=== PATIENT | female | born 1960 | race Caucasian/White ===

== ENCOUNTER 2020-08-01 23:58 | Observation (INO) | payer BC, SELFPAY ==
[2020-08-01 23:59] VITALS: BP 142/69; PULSE 57; RESP 21; TEMP 36.5; O2SAT 100; BMI 25.4
[2020-08-02] VITALS (22 sets, daily range): BP systolic 107–162; BP diastolic 49–88; PULSE 50–101; RESP 14–18; TEMP 36.4–37.5; O2SAT 92–99; BMI 27.5
[2020-08-02 00:17] LABS: Microscopic, Urine URINE MICROSCOPIC (MICROSCOPIC)
--- NOTE | 2020-08-02 00:18 | CT_ITS ---
PROCEDURE INFORMATION: Exam: CT Abdomen And Pelvis Without Contrast Exam date and time: 08/02/2020 12:18 AM Age: 60 years old Clinical indication: Abdominal pain; Right; Prior surgery; Surgery date: 6+ months; Surgery type: Gb hysterectomy; Patient HX: RT flank pain, vomiting, hematuria; Additional info: Kidney stone protocol TECHNIQUE: Imaging protocol: Computed tomography of the abdomen and pelvis without contrast. Total images: 297 Radiation optimization: All CT scans at this facility use at least one of these dose optimization techniques: automated exposure control; mA and/or kV adjustment per patient size (includes targeted exams where dose is matched to clinical indication); or iterative reconstruction. COMPARISON: No relevant prior studies available. FINDINGS: Liver: Normal. No mass. Gallbladder and bile ducts: Cholecystectomy noted with postoperative biliary ductal fullness. Pancreas: Normal. No ductal dilation. Spleen: Normal. No splenomegaly. Adrenal glands: Normal. No mass. Kidneys and ureters: Multiple nonobstructive left sided kidney stones measure as large as 3 mm. Irregular shaped 4 x 4 x 8 mm right-sided mid ureteral stone. Mild hydronephrosis. The right renal sinus edema from obstruction. Stomach and bowel: Colonic diverticulosis is present without diverticulitis. Appendix: Normal appendix. Intraperitoneal space: Unremarkable. No free air. No significant fluid collection. Vasculature: Unremarkable. No abdominal aortic aneurysm. Lymph nodes: Unremarkable. No enlarged lymph nodes. Urinary bladder: Unremarkable as visualized. Reproductive: Prior hysterectomy noted. Pelvic Floor: Laxity of the pelvic floor is noted. Bones/joints: Facet joint degenerative changes are present. Mild disc bulge at L2/L3. Soft tissues: Breast implants are present. There is a fat containing right inguinal hernia. IMPRESSION: 1. Irregular shaped 4 x 4 x 8 mm right-sided mid ureteral stone. Mild hydronephrosis. 2. Normal appendix.
[2020-08-02 00:28] LABS: Appearance,Urine CLEAR (Clear); Bacteria,Urine 2+ /lpf; Bilirubin,Urine Negative (Negative); Blood, Urine 3+ (Negative); Color,Urine YELLOW (Yellow); Glucose,Urine (UA) Negative (Negative); Ketones,Urine Negative (Negative); Leukocyte Esterase,Urine 1+ (Negative); Mucus,Urine 1+ /lpf; Nitrate,Urine Negative (Negative); Protein,Urine Negative (Negative); Specific Gravity, Urine >= 1.030 (1.005-1.030); Urobilinogen,Urine 0.2 EU/dl (0.2)
[2020-08-02 00:34] LABS: Basophils # 0.1 K/mm3 (0-0.2); Basophils % 0.7 % (0.1-2.0); Eosinophils # 0.1 K/mm3 (0.0-0.4); Eosinophils % 0.7 % (0.1-12.0); Hematocrit 40.6 % (37.0-47.0); Hemoglobin 13.8 g/dL (12.2-16.2); Lymphocytes # 2.3 K/mm3 (0.7-4.5); Mean Corpuscular HGB Conc 33.9 g/dL (31.8-35.4); Mean Corpuscular Hemoglobin 31.8 pg (27.0-31.2); Mean Corpuscular Volume 93.9 fl (81-99); Mean Platelet Volume 8.3 fl (7.4-10.4); Monocytes # 0.5 K/mm3 (0.1-1.0); Monocytes % 4.2 % (1.7-9.3); Neutrophils # 8.1 K/mm3 (1.8-7.8); Neutrophils % 73.5 % (37.0-80.0); Platelet Count 229 K/mm3 (142-424); Red Blood Count 4.33 M/mm3 (4.20-5.40); Red Cell Distribution Width 13.7 % (11.5-17.5)
--- NOTE | 2020-08-02 00:37 | HMH.EDABDPAI ---
ED Disposition Clinical Impression: Calculus of kidney Disposition: Admitted as Observation Condition on Discharge: Good Instructions: DI for Acute Abdominal Pain - Critical Care Critical Care Time: No Attestation: On , the high probability of a clinically significant, sudden or life threatening deterioration of the following system(s) required my full and direct attention, intervention and personal management. The time I documented below is in addition to time spent performing reported procedures but includes the following listed in this critical care notation. Medical Decision Making - Medical Records Medical records reviewed: Yes: I reviewed the patient's medical records. - Prakash Inquiry Pt receiving controlled substance: No Vital Signs: 08/01/20 23:59 Temperature 97.7 F Temperature Source Oral Pulse Rate [Left Radial] 57 L Respiratory Rate 21 Blood Pressure [Right Arm] 142/69 H Blood Pressure Mean [Right Arm] 93 Blood Pressure Source [Right Arm] Automatic Cuff Blood Pressure Position [Right Arm] Sitting 02 Sat by Pulse Oximetry 100 Oxygen Delivery Method Room Air - Lab Data Lab Results 08/02/20 00:08: Urine Color Yellow, Urine Appearance Clear, Urine pH 6.0, Ur Specific [place] >= 1.030, Urine Protein Negative, Urine Glucose (UA) Negative, Urine Ketones Negative, Urine Blood 3+, Urine Nitrate Negative, Urine Bilirubin Negative, Urine Urobilinogen 0.2, Ur Leukocyte Esterase 1+ A, Urine RBC 10-20, Urine WBC 5-10, Ur Squamous Epith Cells 5-10, Urine Bacteria 2+, Urine Mucus 1+ 08/02/20 00:26: WBC 11.0 H, RBC 4.33, Hgb 13.8, Hct 40.6, MCV 93.9, MCH 31.8 H, MCHC 33.9, RDW 13.7, Plt Count 229, MPV 8.3, Neut % (Auto) 73.5, Lymph % (Auto) 21.0, [place] % (Auto) 4.2, Eos % (Auto) 0.7, Baso % (Auto) 0.7, Neut # (Auto) 8.1 H, Lymph # (Auto) 2.3, [place] # (Auto) 0.5, Eos # (Auto) 0.1, Baso # (Auto) 0.1 08/02/20 00:26: Sodium 138, Potassium 3.6, Chloride 100, Carbon Dioxide 29, Anion Gap 12.6, BUN 20 H, Creatinine 0.90, Estimated Creat Clear 63, Estimated GFR 64, Est GFR ( Amer) 77, Glucose 169 H, Calcium 9.2, Lipase 121 Result diagrams: 08/02/20 00:26 08/02/20 00:26 Orders (Tests/Meds): ED MEDICATIONS Generic Name Dose Route Start Last Admin Trade Name Freq PRN Reason Stop Dose Admin Sodium Chloride 1,000 mls @ 999 mls/hr 08/02/20 00:15 08/02/20 00:15 Sod Chlor 0.9% 1000ml Bag IV 08/02/20 01:15 999 mls/hr .Q1H1M LASHAWN Administration Discontinued Medications Generic Name Dose Route Start Last Admin Trade Name Freq PRN Reason Stop Dose Admin Ketorolac Tromethamine 30 mg 08/02/20 02:09 08/02/20 02:14 Ketorolac 30mg/Ml Vial IV 08/02/20 02:10 30 mg ONCE ONE Administration Morphine Sulfate 4 mg 08/02/20 00:11 08/02/20 00:36 Morphine 4mg/Ml Syringe IV 08/02/20 00:12 4 mg ONCE ONE Administration Morphine Sulfate 4 mg 08/02/20 02:17 Morphine 4mg/Ml Syringe IV 08/02/20 02:18 ONCE ONE Promethazine HCl 25 mg 08/02/20 00:11 08/02/20 00:36 Promethazine Hcl 25mg/Ml 1ml Vial IV 08/02/20 00:12 25 mg ONCE ONE Administration Sodium Chloride 25 ml 08/02/20 00:12 Sodium Chloride 0.9% 25ml Bag IV 08/02/20 00:13 ONCE ONE ORDERS Category Date Time Status Rapid PCR Covid and Flu A/B Stat Lab 08/02/20 02:19 Ordered Urine Culture Stat Micro 08/02/20 00:08 Received Medical Decision Narrative: 60-year-old female presents with sudden onset right-sided flank pain. History is most consistent with renal colic. Afebrile and less concern for acute pyelonephritis. No history or exam findings concerning for gallbladder etiology perforation obstruction ischemia diverticulitis or appendicitis. Given morphine and Phenergan and IV fluids for symptomatic treatment. CT stone obtained. CT stone shows 4x8 irregular stone with mild hydronephrosis. Creatinine normal no evidence of urinary tract infection. On reexamination her pain has returned given Tor
[2020-08-02 00:41] LABS: Anion Gap 12.6 mEq/L (5-15); Blood Urea Nitrogen 20 mg/dl (7-17); Calcium 9.2 mg/dl (8.4-10.2); Carbon Dioxide 29 mmol/L (22.0-30.0); Chloride 100 mmol/L (98-107); Creatinine Clearance Estimated 63 mL/min (50-200); Estimated Glomerular Filt Rate 64 ml/min (>60); GFR (African American) 77 ML/MIN (>60); Glucose 169 mg/dl (74-100); Lipase 121 U/L (23-300); Potassium 3.6 mmoL/L (3.5-5.1); Sodium 138 mmol/L (136-145)
--- NOTE | 2020-08-02 02:16 | PC.NURSE ---
Dr Reilly speaking with Dr eCrda for admission
[2020-08-02 02:28] LABS: Coronavirus 19, PCR Not Detected (NotDetected); Influenza A, PCR Not Detected (NotDetected); Influenza B, PCR Not Detected (NotDetected)
--- NOTE | 2020-08-02 03:48 | PC.NURSE ---
PT ARRIVED TO FLOOR VIA W/C FROM ED W/STAFF AT [id number]
--- NOTE | 2020-08-02 07:19 | HMH.PHAVTE ---
[facility] Pharmacy VTE Monitoring - Patient Demographics Admission date: 08/02/20 Report Date: 08/02/20 Time: 07:20 Allergies/Adverse Reactions: Patient Allergies Penicillins Allergy (Verified 08/02/20 00:35) Height: 1.63 m Weight: 72.802 kg Patient Problems: Current Active Problems Calculus of kidney (Acute) - VTE Risk Labs: VTE Related Lab Results Hgb 13.8 g/dL (12.2-16.2) 08/02/20 00:26 Hct 40.6 % (37.0-47.0) 08/02/20 00:26 Plt Count 229 K/mm3 (142-424) 08/02/20 00:26 BUN 20 mg/dl (7-17) H 08/02/20 00:26 Creatinine 0.90 mg/dl (0.52-1.04) 08/02/20 00:26 Estimated Creat Clear 63 mL/min (50-200) 08/02/20 00:26 Was VTE Risk Assessment Performed: Yes VTE Score: 1 VTE Risk Level: Very Low Risk - Prophylaxis VTE Prophylaxis Ordered?: Yes Types of VTE Prophylaxis: TEDS Knee High Location of Applied Device: Bilateral Lower Extremeties
--- NOTE | 2020-08-02 07:49 | HMH.PHAINT ---
MEDICATION RECONCILIATION COMPLETED ON PATIENT USING EXTERNAL FILL HISTORY FROM PHARMACY. -JOCELYN MARTINEZ, JUANJOD
--- NOTE | 2020-08-02 08:17 | PC.NURSE ---
Spoke w/ Dr. Riccardo Lama's office aware of consult.
[2020-08-02 08:40] LABS: Basophils % 0.4 % (0.1-2.0); Eosinophils # 0.1 K/mm3 (0.0-0.4); Eosinophils % 0.6 % (0.1-12.0); Hematocrit 39.2 % (37.0-47.0); Lymphocytes # 0.7 K/mm3 (0.7-4.5); Lymphocytes % 6.9 % (10-50); Mean Corpuscular HGB Conc 33.2 g/dL (31.8-35.4); Mean Corpuscular Hemoglobin 31.7 pg (27.0-31.2); Mean Corpuscular Volume 95.5 fl (81-99); Mean Platelet Volume 8.6 fl (7.4-10.4); Monocytes # 0.1 K/mm3 (0.1-1.0); Neutrophils # 8.7 K/mm3 (1.8-7.8); Neutrophils % 91.2 % (37.0-80.0); Platelet Count 168 K/mm3 (142-424); Red Cell Distribution Width 13.6 % (11.5-17.5); White Blood Count 9.5 K/mm3 (4.8-10.8)
[2020-08-02 08:44] LABS: MANUAL DIFFERENTIAL MANUAL DIFFERENTIAL (MANUAL DIFF)
[2020-08-02 08:52] LABS: Lymphocytes % 13 % (10-50); Monocytes % 4 % (2-9); Neutrophils % 80 % (42-76); Platelet Estimate Normal; RBC Morphology Normal; Total Cells Counted 100
--- NOTE | 2020-08-02 09:06 | HMH.HP ---
*Admission Date: 08/02/20 <Shani Goodwin 08/02/20 09:08> *Chief complaint: right flank and abdominal pain <Shani Goodwin 08/02/20 11:02> *History of present illness: Ms. 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 She states last night around 8:00 she began having severe right flank and right-sided abdominal pain. She then began vomiting. She felt at one point like she was going to pass out and had her friend bring her to the emergency room. She was evaluated in the ER and found to have a 4 x 4 x 8 mm right-sided ureteral stone. There was mild hydronephrosis. With the irregular shape of the stone, she was admitted for pain control, IV fluids, and a urology consult. <Shani Goodwin 08/02/20 11:02> [facility] History I have reviewed the patient's past medical history: Yes <Shani Goodwin 08/02/20 11:02> Medical History: Reports:: Arrhythmia, Diabetes Mellitus Type 2, Hyperlipidemia, Hypertension <Shani Goodwin 08/02/20 09:08> *Have you ever received a pneumonia vaccine?: No <Shani Goodwin 08/02/20 09:08> *Have you received a flu vaccine this season?: No <Shani Goodwin 08/02/20 09:08> Laterality Cases: Bilateral: Carpal Tunnel Release <Shani Goodwin 08/02/20 11:02> Other Surgeries: Yes: Cardiac Catheterization, Hysterectomy-Total <Shani Goodwin 08/02/20 09:08> - *Social History Smoking Status: Never smoker <Shani Goodwin 08/02/20 11:02> Alcohol Intake: current <Shani Goodwin 08/02/20 09:08> Alcohol Intake Frequency:: a few times a week <Shani Goodwin 08/02/20 09:08> *Occupational Status:: employed <Shani Goodwin 08/02/20 09:08> *Travel in the last 8 weeks: Inside the [place] <Shani Goodwin 08/02/20 09:08> Family Hx:: No significant family history <Shani Goodwin 08/02/20 09:08> Review of Systems - Constitutional Denies chills, Denies fever(s), Denies weakness <Shani Goodwin 08/02/20 11:02> - Eyes Denies blurry vision, Denies double vision <Shani Goodwin 08/02/20 11:02> - ENT Reports nasal congestion, Denies sore throat <Shani Goodwin 08/02/20 11:02> - *Cardiovascular Denies chest pain, Denies shortness of breath <Shani Goodwin 08/02/20 11:02> - *Respiratory Denies cough, Denies shortness of breath <Shani Goodwin 08/02/20 11:02> - *Gastrointestinal Reports abdominal pain (Right-sided), Reports nausea, Reports vomiting, Denies loose stools <Shani Goodwin 08/02/20 11:02> - *Genitourinary Denies difficulty urinating, Denies painful urination <Shani Goodwin 08/02/20 11:02> - *Musculoskeletal Reports back pain (Right flank), Denies joint pain <Shani Goodwin 08/02/20 11:02> - *Neurologic Reports dizziness, Denies dizziness, Denies headache(s), Denies numbness, Denies weakness <Shani Goodwin 08/02/20 11:02> Meds Home Medications Medication Instructions Recorded Confirmed Type Lisinopril/Hydrochlorothiazide 1 tab PO DAILY 08/02/20 08/02/20 History [Lisinopril-Hctz 20-25 mg Tab*] Metformin HCl 500 mg PO BIDWM 08/02/20 08/02/20 History <Macario Cerda - 08/02/20 11:49> Allergies Allergy/AdvReac Type Severity Reaction Status Date / Time Penicillins Allergy Verified 08/02/20 00:35 <Macario Cerda - 08/02/20 11:49> Exam Vital signs and Labs for Last 24 Hours: Temp Pulse Resp BP Pulse Ox 99.5 F 75 17 147/63 H 95 08/02/20 07:56 08/02/20 07:56 08/02/20 07:56 08/02/20 07:56 08/02/20 07:56 Laboratory Results - last 24 hr 08/02/20 00:08: Urine Color Yellow, Urine Appearance Clear, Urine pH 6.0, Ur Specific [place] >= 1.030, Urine Protein Negative, Urine Glucose (UA) Negative, Urine Ketones Negative, Urine Blood 3+, Urine Nitrate Negative, Urine Bilirubin Negative, Urine Urobilinogen 0.2, Ur Leukocyte Esterase 1+ A, Urine RBC 10-20, Urine WBC 5-10, Ur Squamous Epith Cells 5-10,
[2020-08-02 09:39] LABS: Chloride 104 mmol/L (98-107); Potassium 4.3 mmoL/L (3.5-5.1); Sodium 139 mmol/L (136-145)
[2020-08-02 09:41] LABS: Blood Urea Nitrogen 19 mg/dl (7-17); Creatinine Clearance Estimated 68 mL/min (50-200); Estimated Glomerular Filt Rate 64 ml/min (>60); GFR (African American) 77 ML/MIN (>60)
[2020-08-02 09:42] LABS: Anion Gap 14.3 mEq/L (5-15); Calcium 8.7 mg/dl (8.4-10.2); Carbon Dioxide 25 mmol/L (22.0-30.0); Chol/HDL Ratio 3.3 (1-3.5); Cholesterol 219 mg/dl (140-200); Glucose 103 mg/dl (74-100); HDL Cholesterol 66 mg/dl (40-60); Magnesium 1.4 mg/dl (1.6-2.3); Phosphorous 4.6 mg/dl (2.5-4.5); Triglycerides 70 mg/dl (30-150); VLDL Cholesterol 14 mg/dL (0-40)
[2020-08-02 09:53] LABS: Direct LDL Cholesterol 144.86 mg/dL (100-129)
--- NOTE | 2020-08-02 10:03 | HMH.CONS ---
*Admission Date: 08/02/20 *Reason for consult:: Right ureteral stone *History of present illness: Patient is a 60-year-old white female with the acute onset of right flank pain yesterday. Pain was associated with nausea and vomiting. She came into the emergency room last evening and a CT scan showed a 4 x 8 mm stone in the right mid ureter. Her white count is 11.0 and her creatinine is 0.9. She was admitted for pain control and she states some mild discomfort this morning but otherwise had a pretty good evening and was able to sleep. She denies a previous history of kidney stones. She is visiting [place] and lives in [facility]. [facility] History Medical History: Reports:: Arrhythmia, Diabetes Mellitus Type 2, Hyperlipidemia, Hypertension *Have you ever received a pneumonia vaccine?: No *Have you received a flu vaccine this season?: No Other Surgeries: Yes: Cardiac Catheterization, Hysterectomy-Total - *Social History Last grade of school completed: High school graduate Smoking Status: Former smoker Alcohol Intake: current Alcohol Intake Frequency:: a few times a week *Occupational Status:: employed *Travel in the last 8 weeks: Inside the [place] Family Hx:: No significant family history Review of Systems - Review of Systems Review of systems:: pertinent systems reviewed and negative unless documented below - Constitutional Denies anorexia - ENT Denies poor balance - *Cardiovascular Denies chest pain - *Respiratory Denies shortness of breath with activity - *Gastrointestinal Reports vomiting - *Genitourinary Denies blood in urine - *Musculoskeletal Reports back pain - Integumentary/Breasts Denies hair loss - *Neurologic Denies dizziness, Denies headache(s), Denies numbness, Denies weakness Meds Home Medications Medication Instructions Recorded Confirmed Type Lisinopril/Hydrochlorothiazide 1 tab PO DAILY 08/02/20 08/02/20 History [Lisinopril-Hctz 20-25 mg Tab*] Metformin HCl 500 mg PO BIDWM 08/02/20 08/02/20 History Allergies Allergy/AdvReac Type Severity Reaction Status Date / Time Penicillins Allergy Verified 08/02/20 00:35 Exam Vital signs and Labs for Last 24 Hours: Temp Pulse Resp BP Pulse Ox 99.5 F 75 17 147/63 H 95 08/02/20 07:56 08/02/20 07:56 08/02/20 07:56 08/02/20 07:56 08/02/20 07:56 Laboratory Results - last 24 hr 08/02/20 00:08: Urine Color Yellow, Urine Appearance Clear, Urine pH 6.0, Ur Specific [place] >= 1.030, Urine Protein Negative, Urine Glucose (UA) Negative, Urine Ketones Negative, Urine Blood 3+, Urine Nitrate Negative, Urine Bilirubin Negative, Urine Urobilinogen 0.2, Ur Leukocyte Esterase 1+ A, Urine RBC 10-20, Urine WBC 5-10, Ur Squamous Epith Cells 5-10, Urine Bacteria 2+, Urine Mucus 1+ 08/02/20 00:26: WBC 11.0 H, RBC 4.33, Hgb 13.8, Hct 40.6, MCV 93.9, MCH 31.8 H, MCHC 33.9, RDW 13.7, Plt Count 229, MPV 8.3, Neut % (Auto) 73.5, Lymph % (Auto) 21.0, [place] % (Auto) 4.2, Eos % (Auto) 0.7, Baso % (Auto) 0.7, Neut # (Auto) 8.1 H, Lymph # (Auto) 2.3, [place] # (Auto) 0.5, Eos # (Auto) 0.1, Baso # (Auto) 0.1 08/02/20 00:26: Sodium 138, Potassium 3.6, Chloride 100, Carbon Dioxide 29, Anion Gap 12.6, BUN 20 H, Creatinine 0.90, Estimated Creat Clear 63, Estimated GFR 64, Est GFR ( Amer) 77, Glucose 169 H, Calcium 9.2, Lipase 121 08/02/20 02:25: SARS-CoV-2 (PCR) Not detected, Influenza A Untype (PCR) Not detected, Influenza Type B (PCR) Not detected 08/02/20 08:16: WBC 9.5, RBC 4.10 L, Hgb 13.0, Hct 39.2, MCV 95.5, MCH 31.7 H, MCHC 33.2, RDW 13.6, Plt Count 168 D, MPV 8.6, Neut % (Auto) 91.2 H, Lymph % (Auto) 6.9 L, [place] % (Auto) 1.0 L, Eos % (Auto) 0.6, Baso % (Auto) 0.4, Neut # (Auto) 8.7 H, Lymph # (Auto) 0.7, [place] # (Auto) 0.1, Eos # (Auto) 0.1, Baso # (Auto) 0.0, Total Counted 100, Neutrophils % (Manual) 80 H, Band Neutrophils % 3.0, Lymphocytes % (Manual) 13, Monocytes % (Manual) 4, Platelet Estimate Normal, RBC Morphology Normal 08/02/20 08
--- NOTE | 2020-08-02 11:32 | PC.NURSE ---
Pt down for procedure @ this time
--- NOTE | 2020-08-02 11:45 | HMH.ANESCL ---
[facility] Anesthesia Checklist - Patient Identification Patient Identification: Arm Band - Structural Data Admitted From: Home Planned Operative Procedure/s: Ureteroscopy Consent for Planned Operative Procedure(s) Verified: Yes - NPO Status Verified Time NPO: 00:00 - Airway Assessment C-Spine Mobility Assessed: Yes TMJ Mobility Assessed: Yes Dentition: Good Dentition - Neurological Assessment Level of Consciousness: Awake Hx Seizures: No Numbness or tingling in extremities: No - Anesthesia Plan Anesthesia Risk discussed: Yes Anesthesia Plan: Verified ASA Class: II Anesthesia Type: General [facility] History I have reviewed the patient's past medical history: Yes Medical History: Reports:: Arrhythmia, Diabetes Mellitus Type 2, Hyperlipidemia, Hypertension *Have you ever received a pneumonia vaccine?: No *Have you received a flu vaccine this season?: No Anesthesia experience/problems:: Hypotension Laterality Cases: Bilateral: Carpal Tunnel Release Other Surgeries: Yes: Cardiac Catheterization, Hysterectomy-Total - *Social History Last grade of school completed: High school graduate Smoking Status: Former smoker Alcohol Intake: current Alcohol Intake Frequency:: a few times a week Substance Use Type: denies use *Occupational Status:: employed *Travel in the last 8 weeks: Inside the [place] Family Hx:: No significant family history
--- NOTE | 2020-08-02 13:59 | XR_ITS ---
PROCEDURE: XR KUB CLINICAL INDICATION: URETEROSCOPY COMPARISON: No exams were available for comparison FINDINGS: Fluoroscopy time: 1 minutes and 23 seconds Two images are submitted with the C-arm showing interval placement a right ureteral stent overlying the right upper quadrant and right pelvic region. IMPRESSION: Status post right ureteral stent placement Dictated by: Isauro Dorsey MD 08/02/2020 14:49 Isauro Dorsey MD in OV 08/02/2020 14:49
--- NOTE | 2020-08-02 14:09 | P.PN_ITS ---
[facility] Anesthesia Record Part I Intake, IV Amount: 1,000 Estimated blood loss (mL): 10 Urine output (mL): 0 Blood Products used (#): none Blood Pressure: 144/61 SaO2: 96 Pulse Rate: 101 Respiratory Rate: 14 Temperature: 98.6 F Patient is:: Awake, Drowsy, Stable Stable to PACU at:: 14:10
--- NOTE | 2020-08-02 14:33 | PC.NURSE ---
Pt back to floor @ this time
--- NOTE | 2020-08-02 15:35 | HMH.OPNOTE ---
Date of procedure: 08/02/20 Pre-op Diagnosis:: Right ureteral stone Post-op Diagnosis:: Right ureteral stone, right ureteral stenosis Procedure performed:: Right ureteroscopy, dilation of the ureteral stenosis, stone extraction, right stent placement Surgeon:: Dannie Gu MD SUPERVISOR CELL MAINTENANCE:: Min Corona Anesthesia: LMA Estimated blood loss (mL): 0 Clinical Note:: 60-year-old white female with acute onset of renal colic on the right side last evening. CT scan showed 1/2 mm right ureteral stone. Operative findings:: 4 x 8 mm stone in the distal right ureter. Operative note:: Patient taken to the operating room after informed consent was obtained. She was placed on the operating table in the supine position and general anesthesia administered. Preoperative antibiotics and sequential compression devices placed. She was then placed into the dorsal lithotomy position and prepped draped in the standard surgical fashion. The 22 Cooper passed into the urethra and into the bladder. The bladder was examined in a systematic fashion and there is no evidence of abnormalities. The ureteral orifices in their normal anatomic position. A guidewire was passed into the right ureteral orifice and under fluoroscopy passed proximally. The stone was noted to be in the distal ureter about 8 mm proximal to the right UVJ. The wire passed by the stone without difficulty and the scope removed and our ureteroscope was placed into the right ureter but there was a narrow area about 2 cm above the UVJ. The ureteroscope was removed and our 4 x 15 mm UroMax balloon dilator passed over the guidewire and into the ureter. The balloon was inflated to 13 mm and left for 2 minutes. The balloon then deflated and removed. The ureteroscope was replaced and the previous stenosis was now wide open. The scope was passed up to the stone and a 1.9 [place] stone basket was used to grasp the stone and it was removed with minimal difficulty. The scope was repassed into the ureter and no further stone fragments were noted. The ureteroscope then removed and our cystoscope was backloaded over the guidewire and a 4.8 x 24 [place] stent was placed without difficulty. There was a good curl noted proximally and distally after removing the wire. The bladder drained the scope removed. Patient tolerated procedure well there are no complications. Patient is visiting from [place] and instructions will be given for her to remove her stent in a few days with use of the indwelling string. She was discharged home with antibiotics. Condition: stable Disposition: PACU Specimens:: Stone Complications:: None
--- NOTE | 2020-08-02 18:03 | PC.NURSE ---
PT IS SITTING UP IN THE BED. PT HAS NOT COMPLAINED OF ANY DISCOMFORT SINCE ARRIVING BACK TO THE FLOOR FROM SURGERY. PT STATES SHE IS OKAY WITH BEING DISCHARGED AND SHE WILL CALL FOR FOLLOW UP WITH ON WEDNESDAY. PT WAS INSTRUCTED TO REMOVE STENT ON WEDNESDAY PER 'S ORDER. PT WAS ASKED ABOUT FOLLOWING UP WITH AND SHE STATED [place]AVE [place] WEDNES[place] BUT [place] WOULD STAY IN [place] FOR A FEW EXTRA DAYS UNTIL SHE FOLLOWED UP WITH . PT HAS TOLERATED REGULAR DIET. VSS. LUNG SOUNDS CLEAR. ABDOMEN SOFT/NON TENDER WITH ACTIVE BOWEL SOUNDS. PT HAS BEEN AMBULATING TO THE BATHROOM.
--- NOTE | 2020-08-05 08:55 | HMH.ANESII ---
[facility] Anesthesia Record Part II Discharge Time: 14:30 Destination: Medical Surgical Department PACU nurse assessment reviewed?: Yes Patient Condition:: Good Anesthesia Complications:: None Swallowing reflex intact?: Yes Cyanosis?: No Blood Pressure: 139/66 Pulse Rate: 84 Temperature: 98.7 F Mental Status: Alert & Oriented Pain level:: 0 Nausea and/or vomitting:: None Intake, IV Amount: 0
[2020-08-05 08:57] VITALS: BP 139/66; PULSE 84; TEMP 37.1
--- NOTE | 2020-08-06 16:01 | [facility].DCSUM ---
General - General Admission date:: 08/02/20 Discharge date: 08/02/20 HPI HPI: Ms. 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 She states last night around 8:00 she began having severe right flank and right-sided abdominal pain. She then began vomiting. She felt at one point like she was going to pass out and had her friend bring her to the emergency room. She was evaluated in the ER and found to have a 4 x 4 x 8 mm right-sided ureteral stone. There was mild hydronephrosis. With the irregular shape of the stone, she was admitted for pain control, IV fluids, and a urology consult. Hospital Course Hospital Course: The patient was seen in consultation by Dr. Gu and he performed a right ureteroscopy, dilation of the ureteral stenosis, stone extraction, and right stent placement. The patient did well after the procedure and her pain improved. She was stable to be discharged on antibiotics and toradol and will follow up with Dr. Gu. Objective Vital signs: Temp Pulse Resp BP Pulse Ox 98.7 F 84 18 139/66 96 08/05/20 08:57 08/05/20 08:57 08/02/20 20:05 08/05/20 08:57 08/02/20 20:05 Narrative: - Constitutional no acute distress - *Routine HEENT Exam Head: Present: normocephalic Eye: Present: EOMI, PERRL ENT: Present: mucous membranes dry - *Routine Neck Exam Present: supple. Absent: lymphadenopathy - *Routine Respiratory Exam Present: CTA bilaterally - *Routine Cardiovascular Exam Present: RRR - *Routine Abdominal Exam Present: soft, normoactive bowel sounds, tenderness (Right mid to right lower quadrant) - *Routine Rectal Exam Rectal:: deferred - *Routine Genitalia Exam Genitalia:: deferred - *Routine Extremities Exam Absent: cyanosis, clubbing, edema - *Routine Skin Exam Present: warm. Absent: rash - *Routine Neurological Exam Present: alert, oriented X3 DS: Diagnosis - Discharge Diagnosis (1) Ureteral stone with hydronephrosis Status: Acute (2) Hypertension Status: Chronic Discharge Plan - Patient Discharge Instructions ACTIVITY: Ambulate as tolerated DIET: continue same diet Patient Instructions: Kidney Stones -- Adult, DI for Kidney Stones, DI for Ureteral Stent Placement - Follow up Plan Follow up with: Dannie Gu MD [Staff Physician] - 1 week (Call Wednesday to make follow-up appointment during business hours.) Disposition: Home, Self-Care Condition at discharge:: Improved Home Medications: Home Medications Medication Instructions Recorded Confirmed Type Ketorolac Tromethamine [Toradol 10 mg PO Q6HP PRN #20 tab MDD 08/02/20 Rx 10mg tablet] 40mg/day Lisinopril/Hydrochlorothiazide 1 tab PO DAILY 08/02/20 08/02/20 History [Lisinopril-Hctz 20-25 mg Tab*] Metformin HCl 500 mg PO BIDWM 08/02/20 08/02/20 History Prescriptions/Medication Reconciliation: New Ketorolac Tromethamine [Toradol 10mg tablet] 10 mg PO Q6HP PRN #20 tab MDD 40mg/day PRN Reason: Moderate To Severe Pain Continued Lisinopril/Hydrochlorothiazide [Lisinopril-Hctz 20-25 mg Tab*] 1 tab PO DAILY Metformin HCl 500 mg PO BIDWM - Problem Reconciliation Problems Reviewed?: Yes
== END 2020-08-02 20:05 | disposition home or self-care (01) ==
LOC: ER 08-02 02:45 → 2ND 08-02 02:56
PROVIDERS: Urology; Admitting Provider Family Medicine; Emergency Provider Emergency Medicine; Visit Provider Family Medicine
PROC: 0TJ98ZZ Inspection of Ureter, Via Natural or Artificial Opening Endoscopic (ICD-10-PCS; CPT 52351; principal; 2020-08-02 12:30)
DX: N13.2 Hydronephrosis with renal and ureteral calculous obstruction (principal); I10 Essential (primary) hypertension
CPT/HCPCS: 52352; 52332; 74018; 74176; 76000; 80048; 80061; 81001; 83690; 83735; 84100; 85007; 85025; 87086; 87088; 87186; 96365; 96375; 99284; C2617; G0378; J2405; U0003